=== PATIENT | male | born 1965 | race Caucasian/White ===

== ENCOUNTER 2017-04-06 13:00 | Emergency (ER) | payer BC ==
[~2017-04-06] VITALS: Ht 180.3 cm; Wt 110.0 kg
[~2017-04-06 13:00] MED LIST: CIPR500T4 PO; KLOR20TA6 PO; LABE100; LEVO.075 PO; METR-1 PO; OMEP20TA PO; PERC10TA27 PO
[2017-04-06 13:01] VITALS: BP 168/101; PULSE 73; RESP 15; TEMP 98.2; O2SAT 98
--- NOTE | 2017-04-06 13:05 | PD ---
Physical Exam Time Seen by Provider: 13:05 Narrative 51 y/o male here for evaluation of L shoulder pain which started yesterday while diving. He says that it feels "swollen." Diving depth 80-120 feet. Vital signs reviewed. Seen at triage desk. Awaiting bed placement. Data Data Last Documented VS Vital Signs Date Time Temp Pulse Resp B/P Pulse Ox O2 Delivery O2 Flow Rate FiO2 04/06/17 13:01 98.2 73 15 168/101 98 MDM Medical Record Reviewed: Yes Supervised Visit with JENNIFER: Jesus Stearns Apr 06, 2017 13:05
[2017-04-06] MEDS ORDERED: [UNRECOGNIZED DRUG - REMARK] (13:23)
[2017-04-06] MEDS ORDERED: LEVO75TA3 PO (13:23)
[2017-04-06] MEDS ORDERED: VALS1TAB63 PO (13:23)
[2017-04-06] MEDS ORDERED: POTA-245 PO (13:23)
[2017-04-06] MEDS ORDERED: HYDR-2374 PO (13:23)
[2017-04-06] MEDS ORDERED: OMEP40CA2 PO (13:23)
[2017-04-06] MEDS ORDERED: ASPI81CH CHEW (13:24)
[2017-04-06] MEDS ORDERED: VENL25TA PO (13:24)
[2017-04-06 14:00] VITALS: BP 155/94; PULSE 78; RESP 20; O2SAT 99
--- NOTE | 2017-04-06 14:08 | PD ---
HPI Chief Complaint: Edema Time Seen by Provider: 13:34 Travel History International Travel<30 days: No Contact w/Intl Traveler<30days: No Traveled to known affect area: No History of Present Illness HPI This patient complains of discomfort in his left shoulder area. He noticed yesterday while he was on a scuba diving trip. No direct injury to it. He was diving around 100 feet deep. He reports careful and gradual ascent according to the regulation's and recommendations. He had concern for decompression sickness and that was the reason for his visit. Symptoms of mild severity. No alleviating factors. Duration one day. PFSH Past Medical History GERD: Yes Hypertension: Yes Inguinal Hernia: Yes Medical other: Yes (gout) Musculoskeletal: Yes (bursitis, chronic back pain) Thyroid Disease: Yes Past Surgical History Abdominal Surgery: Yes (hernia repair x2) Social History Alcohol Use: Yes (1/month) Tobacco Use: No Substance Use: No Allergies-Medications (Allergen,Severity, Reaction): Coded Allergies: No Known Allergies (Unverified , 04/06/17) Reported Meds & Prescriptions Reported Meds & Active Scripts Active Reported Effexor (Venlafaxine HCl) 25 Mg Tab 25 Mg PO Q12H Aspirin 81 Mg Chew 81 Mg CHEW DAILY [bp med unknown] Hydrocodone-Acetaminophen 10-300 Tab 1 Tab PO Q6H PRN Klor-Con M20 (Potassium Chloride Microencaps) 20 Meq Tab 20 Meq PO DAILY Levothyroxine (Levothyroxine Sodium) 75 Mcg Tab 75 Mcg PO DAILY Omeprazole 40 Mg Cap 40 Mg PO DAILY Valsartan 40 Mg Tab 20 Mg PO BID Review of Systems General / Constitutional: No: Fever Eyes: No: Visual changes HENT: No: Headaches Cardiovascular: No: Chest Pain or Discomfort Respiratory: No: Shortness of Breath Gastrointestinal: No: Abdominal Pain Genitourinary: No: Dysuria Musculoskeletal: Positive: Myalgias, Pain Skin: No Rash Neurologic: No: Weakness Psychiatric: No: Depression Endocrine: No: Polydipsia Hematologic/Lymphatic: No: Easy Bruising Physical Exam Narrative GENERAL: Well-nourished, well-developed patient in no apparent distress. SKIN: Focused skin assessment reveals no rash and nodules. Skin is Warm and dry. HEAD: Atraumatic. Normocephalic. EYES: Pupils equal and round. No scleral icterus. No injection or drainage. ENT: No nasal bleeding or discharge. Mucous membranes pink and moist. NECK: Trachea midline. No JVD. CARDIOVASCULAR: Regular rate and rhythm. No murmur appreciated. RESPIRATORY: No accessory muscle use. Clear to auscultation. Breath sounds equal bilaterally. GASTROINTESTINAL: Abdomen soft, non-tender, nondistended. Hepatic and splenic margins not palpable. MUSCULOSKELETAL: No obvious deformities. No clubbing. No cyanosis. No edema. Readily reproducible tenderness in the left trapezius musculature. No objective findings. No bruising or swelling. Good range of motion of left shoulder. NEUROLOGICAL: Awake and alert. No obvious cranial nerve deficits. Motor grossly within normal limits. Normal speech. PSYCHIATRIC: Appropriate mood and affect; insight and judgment normal. Data Data Last Documented VS Vital Signs Date Time Temp Pulse Resp B/P Pulse Ox O2 Delivery O2 Flow Rate FiO2 04/06/17 14:54 Non-Rebreather 15 04/06/17 14:28 80 14 169/101 99 04/06/17 13:01 98.2 Orders Iv Access Insert/Monitor (04/06/17 14:01) Sodium Chlor 0.9% 1000 Ml Inj (Ns 1000 M (04/06/17 14:15) Ketorolac Inj (Toradol Inj) (04/06/17 14:15) Oxygen Administration (04/06/17 14:01) MDM Medical Decision Making Medical Screen Exam Complete: Yes Emergency Medical Condition: Yes Medical Record Reviewed: Yes Differential Diagnosis Trapezius strain, type I decompression sickness, shoulder dislocation Narrative Course I have reviewed the patient's electronic medical record. Had a lengthy discussion with the patient. He had concerns for decompression sickness. This topic and reviewed all the up-to-date information and recommendations. After doing this and talking to an examining the patient is left trapezius pain seems musculoskeletal in nature rather than a manifestation of type I decompression sickness but I cannot say with certainty whether this is or not. He certainly would not qualify for hyperbaric treatment. I recommended in a conservative way measures for type I sickness. This includes IV placement and IV fluid hydration and 100% oxygenation. He initially declined but then grudgingly agrees. I observed him a while on the oxygen and he completed his IV fluid liter. Diagnosis Primary Impression: Decompression sickness Qualified Code: T70.3XXA - Decompression sickness, initial encounter Additional Instructions: The patient was advised to follow up with their physician and return if they worsen. Med/Other Pt SpecificInfo: Other Disposition: 01 DISCHARGE HOME Condition: Stable Rajesh Shearer MD Apr 06, 2017 14:08
[2017-04-06] MEDS ORDERED: SODIUM CHLOR 0.9% 1000 ML INJ 1,000 ML IV ONE (14:15)
[2017-04-06] MEDS ORDERED: KETOROLAC TROMETHAMINE 30 MG/ML (IVP) VIAL IVP ONE (14:15)
[2017-04-06 14:28] VITALS: BP 169/101; PULSE 80; RESP 14; O2SAT 99
[2017-04-06 15:00] VITALS: BP 151/83; PULSE 68; RESP 17; O2SAT 100
[2017-04-06 16:12] VITALS: BP 152/90; O2SAT 100
== END 2017-04-06 16:14 | disposition home or self-care (01) ==
LOC: NEPC 13:00
DX: T70.3XXA Caisson disease [decompression sickness], initial encounter (principal); X58.XXXA Exposure to other specified factors, initial encounter; Y93.15 Activity, underwater diving and snorkeling
CPT/HCPCS: 96361; 96374; 99285; J1885; J7030